=== PATIENT | female | born 1950 ===

== ENCOUNTER 2020-01-18 06:33 | Day surgery (SDC) | payer MEDICARE ==
[~2020-01-18 06:33] MED LIST: Lactated Ringers 1,000 ML IV SCH
[2020-01-18] MEDS ORDERED: MEFOXIN 2 GM PREMIX** 2 GM/50 ML ML IV SCH (07:00)
[2020-01-18] MEDS ORDERED: DIPRIVAN 200 MG/20 ML IV ONE ×2 (08:30→08:31)
[2020-01-18 09:18] VITALS: O2SAT 97
[2020-01-18 09:22] VITALS: BP 132/78; PULSE 74
--- NOTE | 2020-01-18 13:04 | OP ---
SURGERY DATE/TIME: 01/18/2020829 PREOPERATIVE DIAGNOSES: 1) Hiatal hernia. 2) Gastroesophageal reflux disease. 3) History of gastric polyps. POSTOPERATIVE DIAGNOSES: 1) Hiatal hernia. 2) Gastroesophageal reflux disease. 3) History of gastric polyps. PROCEDURE: EGD. SURGEON: Eloy Gibson M.D. ANESTHESIA: MAC. SPECIMEN: None. ESTIMATED BLOOD LOSS: None. COMPLICATIONS: None. FINDINGS: A very large hiatal hernia measuring approximately 10 cm with the diaphragmatic hiatus at 30 cm and a large diaphragmatic defect. PATIENT PRESENTATION: This patient presents with the history of a large hiatal hernia, gastric polyps and gastroesophageal reflux disease. After discussing risks and benefits of EGD the patient wished to proceed. DESCRIPTION OF PROCEDURE: The patient was brought to the endoscopy suite and placed under MAC anesthesia in left lateral decubitus position. The scope was gently advanced in the mouth and slowly advanced to the esophagus directly. Esophagus traversed. Stomach entered. There was obvious large hiatal hernia. The first and second portions of the duodenum were evaluated and scope withdrawn. The stomach appeared completely normal. No other polyps seen. Retroflexion performed showing a large hiatal hernia. Scope straightened. Scope removed further and the diaphragmatic hiatus appeared to be about 40 cm and the gastroesophageal junction at 30 cm. There was probably a third of the stomach in the chest. The scope desufflated further. Scope withdrawn. The esophagus appeared normal. There was really no reflux esophagitis and scope removed. The patient was recovered and taken back in stable condition.
== END 2020-01-18 09:26 | disposition home or self-care (01) ==
LOC: SDC 06:33
PROVIDERS: ATTEND Surgery
DX: K44.9 Diaphragmatic hernia without obstruction or gangrene (principal); K21.9 Gastro-esophageal reflux disease without esophagitis; I10 Essential (primary) hypertension; E11.9 Type 2 diabetes mellitus without complications; Z87.19 Personal history of other diseases of the digestive system
CPT/HCPCS: 82962; J2704